=== PATIENT | female | born 1960 | race Caucasian/White ===

== ENCOUNTER 2025-06-13 03:30 | Emergency (ER) | payer BC ==
[~2025-06-13] VITALS: Ht 165.1 cm; Wt 86.2 kg
[2025-06-13 03:32] VITALS: BP 134/85; TEMP 98
[2025-06-13] MEDS ORDERED: LIDOCAINE 1%-EPI 1:100,000 20 ML VIAL ONE (04:49)
[2025-06-13] MEDS: LIDOCAINE /MPF 1% VIAL 5 ML VIAL IJ ONE (05:12)
[2025-06-13 05:33] VITALS: O2SAT 98
== END 2025-06-13 05:34 | disposition home or self-care (01) ==
LOC: ER 03:34
DX: I83.891 Varicose veins of right lower extremity with other complications (principal); E78.5 Hyperlipidemia, unspecified; I10 Essential (primary) hypertension
CPT/HCPCS: 35226; 99284; J3490